=== PATIENT | female | born 1935 ===

== ENCOUNTER → 2021-10-24 | Outpatient (CLI) | payer MEDICARE ==
--- NOTE | 2021-10-24 16:46 | BD ---
EXAMINATION TYPE: Axial Bone Density DATE OF EXAM: 10/24/2021 COMPARISON: 04/16/2012 CLINICAL HISTORY: 86 years year old Female. ICD-10 CODE: M81.0 osteoporosis Height: 5'1/2 Weight: 148 FRAX RISK QUESTIONS: History of Fracture in Adulthood: Y Secondary Osteoporosis: 3. Menopause before 45: y RISK FACTORS HISTORY OF: Postmenopausal woman: y MEDICATIONS: Additional Medications: blood pressure, Montelukast Additional History: EXAM MEASUREMENTS: Bone mineral densitometry was performed using the [employer]. Bone mineral density as measured about the Lumbar spine is: ----- L1-L4(G/cm2): 0.853 T Score Values are as follows: ----- L1: -2.8 ----- L2: -3.5 ----- L3: -2.7 ----- L4: -2.1 ----- L1-L4: -2.7 Bone mineral density has: Decreased 7.8 % since study of: 04/16/2012 Bone mineral density about the R hip (g/cm2): 0.681 Bone mineral density about the L hip (g/cm2): 0.737 T Score values are as follows: -----R Neck: -2.6 -----L Neck: -2.2 -----R Total: -2.0 -----L Total: -1.7 Bone mineral density has: Increased 1.7% since study of: 04/16/2012 FRAX%s: The graph provided illustrates a 26.7 chance for a major osteoporotic fx and a 8.9 chance for the hips probability for fx in 10 years time. IMPRESSION: Osteoporosis (T Score less than -2.5). There is increased fracture risk and therapy is usually indicated based on age. Re-Screen 1-2 years. NOTE: T-SCORE=SD OF THE YOUNG ADULT MEAN.
== END | disposition home or self-care (01) ==
LOC: RADBDWWP 13:05
PROVIDERS: ATTEND Family Medicine
DX: M81.0 Age-related osteoporosis without current pathological fracture (principal)
CPT/HCPCS: 77080

== ENCOUNTER → 2021-11-15 | Outpatient (CLI) | payer MEDICARE ==
[~2021-11-15] MED LIST: SODIUM CHLORIDE 0.9% 500 ML 500 ML in EMPTY BAG 1 BAG IV PRN; ZOLEDRONIC ACID 5 MG in SODIUM CHLORIDE 0.9% 100 ML IV NR
[2021-11-15 13:49] VITALS: BP 179/79; PULSE 77; RESP 18; TEMP 97.7
== END ==
LOC: PROCWHC3 12:46
PROVIDERS: ATTEND Family Medicine
DX: M81.0 Age-related osteoporosis without current pathological fracture (principal); Z91.013 Allergy to seafood
CPT/HCPCS: 96365; J3489